=== PATIENT | male | born 1975 | race Caucasian/White ===

== ENCOUNTER 2020-12-09 16:19 | Inpatient (IN) | payer SELFPAY ==
[~2020-12-09 16:19] MED LIST: Iopamidol-370 76% 500 ML 1 ML ONE; Lorazepam 1 MG TAB PO PRN
[2020-12-09 17:43] LABS: PTT 33.7 sec (22.9-36.1); Prothrombin Time 13.4 sec (12.0-14.7)
[2020-12-09 18:09] LABS: ALT (SGPT) 57 U/L (8-55); AST (SGOT) 75 U/L (5-34); Albumin 2.7 g/dL (3.5-5.0); Alkaline Phosphatase 59 U/L (40-110); Anion Gap 15 mmol/L (10-20); BUN (Urea Nitrogen) 7 mg/dL (8.9-20.6); Bilirubin, Total 1.2 mg/dL (0.2-1.2); Calc. Creatinine Clearance 0 mL/min (70-130); Calcium 7.5 mg/dL (7.8-10.44); Carbon Dioxide 17 mmol/L (22-29); Chloride 100 mmol/L (98-107); Globulin 3.7 g/dL (2.4-3.5); Glucose 87 mg/dL (70-105); Magnesium 2.3 mg/dL (1.6-2.6); Potassium 3.5 mmol/L (3.5-5.1); Protein, Total 6.4 g/dL (6.0-8.3); Sodium 128 mmol/L (136-145)
[2020-12-09] MEDS ORDERED: Electrolyte Replacement Protocol 1 EACH FS SCH (18:15)
[2020-12-09 18:28] LABS: Phosphorus 3.6 mg/dL (2.3-4.7)
[2020-12-09 18:29] LABS: SARS-CoV-2 NAA Rapid Test Not Detected (NotDetected)
[2020-12-09] MEDS ORDERED: Ondansetron PF 4 MG/2 ML Vial IVP PRN (18:38)
[2020-12-09] MEDS ORDERED: Acetaminophen 325 MG TAB PO PRN (18:38)
[2020-12-09] MEDS ORDERED: HYDROcodone/Acetaminophen 5/325 mg Tablet PO PRN (18:38)
[2020-12-09] MEDS ORDERED: Morphine 4 MG/ML VIAL SLOW IVP PRN (18:44)
[2020-12-09] MEDS: Lorazepam 1 MG TAB PO SCH (19:44)
[2020-12-09 19:48] VITALS: BMI 29.0
[2020-12-09] MEDS ORDERED: Ondansetron ODT 4 MG TAB PO PRN (21:00)
[2020-12-09] MEDS ORDERED: Lorazepam 2 MG/ML VIAL IM PRN (21:00)
[2020-12-09] MEDS ORDERED: Piperacillin/Tazobactam 4.5 GM in Sodium Chloride 0.9% 100 ML IVPB SCH (22:00)
[2020-12-09] MEDS: Sodium Chloride 0.9% 1,000 ML IV SCH (22:19)
[2020-12-09] MEDS: Clindamycin/D5W 900 MG in Premix Bag 1 BAG IVPB SCH (22:20)
[2020-12-09] MEDS: Thiamine HCl 200 MG/2 ML VIAL SLOW IVP SCH (22:20)
[2020-12-09] MEDS: Nicotine 21 MG PATCH TD SCH (22:20)
[2020-12-09] MEDS: Piperacillin/Tazobactam 3.375 GM in Sodium Chloride 0.9% 100 ML IVPB SCH (22:20)
[2020-12-09] MEDS ORDERED: Fentanyl 100 MCG/2 ML VIAL ONE (23:22)
[2020-12-09] MEDS ORDERED: Ondansetron PF 4 MG/2 ML Vial ONE (23:37)
[2020-12-09] MEDS ORDERED: Succinylcholine 200 MG/10 ml SYRINGE FS ONE (23:37)
[2020-12-09] MEDS ORDERED: Rocuronium Bromide 10 MG/ML (10ML VIAL) ONE (23:37)
[2020-12-09] MEDS ORDERED: Glycopyrrolate 0.2 MG/ML 5 ML SYRINGE ONE (23:37)
[2020-12-09] MEDS ORDERED: Lidocaine 1% PF 5 ML VIAL ONE ×2 (23:37)
[2020-12-09] MEDS ORDERED: PROPOFOL 200 MG/20 ML VIAL ONE (23:37)
[2020-12-09] MEDS ORDERED: Dexamethasone 20 MG/5 ML VIAL ONE (23:37)
[2020-12-09] MEDS ORDERED: VANCOMYCIN 1.25 GM/250 ML BAG 1.25 GM in Premix Bag 1 BAG IVPB SCH (23:59)
[2020-12-10] MEDS ORDERED: Zolpidem Tartrate 5 MG TAB PO PRN (01:01)
[2020-12-10] MEDS ORDERED: Promethazine HCl 25 MG/ML VIAL IM PRN ×2 (01:01→01:03)
[2020-12-10] MEDS ORDERED: Ondansetron PF 4 MG/2 ML Vial IVP PRN (01:01)
[2020-12-10] MEDS ORDERED: diphenhydrAMINE 50 MG/ML VIAL IM PRN (01:01)
[2020-12-10] MEDS ORDERED: Naloxone HCl 0.4 mg/ml Vial IV PRN (01:01)
[2020-12-10] MEDS ORDERED: diphenhydrAMINE 25 MG CAP PO PRN (01:01)
[2020-12-10] MEDS ORDERED: diphenhydrAMINE 50 MG/ML VIAL IVP PRN (01:01)
[2020-12-10] MEDS ORDERED: fentaNYL Citrate/PF 2,000 MCG in Sodium Chloride 0.9% 60 ML IV PRN (01:01)
[2020-12-10] MEDS ORDERED: Promethazine HCl 25 MG/ML VIAL IVPB PRN (01:03)
[2020-12-10] MEDS ORDERED: Ondansetron HCl/PF 4 MG/2 ML Vial IVP PRN (01:03)
[2020-12-10] MEDS ORDERED: Fentanyl 100 MCG/2 ML VIAL ONE (01:11)
[2020-12-10] MEDS ORDERED: Communication Order-Pharmacy FS SCH (01:15)
[2020-12-10] MEDS: Lorazepam 1 MG TAB PO SCH (01:40)
[2020-12-10] MEDS: VANCOMYCIN 1.25 GM/250 ML BAG 1.25 GM in Premix Bag 1 BAG IVPB SCH ×3 (02:25→18:03)
[2020-12-10] MEDS: Piperacillin/Tazobactam 3.375 GM in Sodium Chloride 0.9% 100 ML IVPB SCH ×3 (03:27→20:11)
[2020-12-10] MEDS: Clindamycin/D5W 900 MG in Premix Bag 1 BAG IVPB SCH ×3 (03:27→22:35)
[2020-12-10 05:26] LABS: Anion Gap 14 mmol/L (10-20); BUN (Urea Nitrogen) 7 mg/dL (8.9-20.6); Calc. Creatinine Clearance 205 mL/min (70-130); Calcium 7.7 mg/dL (7.8-10.44); Carbon Dioxide 18 mmol/L (22-29); Chloride 103 mmol/L (98-107); Glucose 125 mg/dL (70-105); Magnesium 2.4 mg/dL (1.6-2.6); Potassium 4.6 mmol/L (3.5-5.1); Sodium 130 mmol/L (136-145)
[2020-12-10 05:38] LABS: Band 5 % (5-11); Hemoglobin 12.3 g/dL (14.0-18.0); Lymphocytes 11 % (21-51); MDiff Complete? YES; Mean Corpuscular HGB CONC 34.5 g/dL (32.0-36.0); Mean Corpuscular Hemoglobin 33.4 pg (27.0-31.0); Mean Corpuscular Volume 96.9 fL (78.0-98.0); Mean Platelet Volume 7.2 fL (7.4-10.4); Monocytes 6 % (0-10); Neutrophil 78 % (42-75); Platelet Count 250 thou/uL (130-400); Platelet Morphology Comment Appears Adequate; RBC Distribution Width 13.8 % (11.5-14.5); RBC Morphology Normal; Red Blood Cell (RBC) Count 3.69 mill/uL (4.70-6.10); White Blood Cell (WBC) Count 10.5 thou/uL (4.8-10.8)
[2020-12-10] MEDS ORDERED: Lorazepam 1 MG TAB PO SCH (06:00)
[2020-12-10] MEDS ORDERED: GUAIFENESIN SF SOLN 200 MG/10 ML UDCUP PO PRN (08:04)
[2020-12-10] MEDS ORDERED: Cepastat Lozenges 1 LOZ PO PRN (08:04)
[2020-12-10] MEDS ORDERED: hydrALAZINE 20 MG/ML VIAL SLOW IVP PRN (08:04)
[2020-12-10] MEDS ORDERED: Bisacodyl 5 MG TAB PO PRN (08:04)
[2020-12-10] MEDS ORDERED: Artificial Tear Sol 15 ML BOT EA EYE PRN (08:04)
[2020-12-10] MEDS ORDERED: Senokot S 8.6-50 MG TAB PO PRN (08:04)
[2020-12-10] MEDS ORDERED: Calcium Carbonate 500 MG ChewTAB PO PRN (08:04)
[2020-12-10] MEDS ORDERED: Loperamide HCl 2 MG CAP PO PRN (08:04)
[2020-12-10] MEDS ORDERED: Hydrocerin (Eucerin) Cream 120 gm Jar TOP PRN (08:04)
[2020-12-10] MEDS ORDERED: Sodium Chloride 0.65% Nasal 44 ML BOT EA NARE PRN (08:04)
[2020-12-10] MEDS: Multivit, Therapeutic 1 TAB PO SCH (09:12)
[2020-12-10] MEDS: Saccharomyces boulardii 250 MG CAP PO SCH (09:12)
[2020-12-10] MEDS: Folic Acid 1 MG TAB PO SCH (09:12)
[2020-12-10] MEDS: Sodium Chloride 0.9% 1,000 ML IV SCH ×2 (09:13→22:35)
[2020-12-10] MEDS: Nicotine 21 MG PATCH TD SCH (20:11)
[2020-12-10] MEDS: Thiamine HCl 200 MG/2 ML VIAL SLOW IVP SCH (20:51)
[2020-12-10] MEDS ORDERED: Lorazepam 1 MG TAB PO PRN (21:00)
[2020-12-11 01:18] LABS: Vancomycin, Trough 18.8 ug/mL
[2020-12-11] MEDS: VANCOMYCIN 1.25 GM/250 ML BAG 1.25 GM in Premix Bag 1 BAG IVPB SCH ×3 (01:25→18:08)
[2020-12-11] MEDS: Piperacillin/Tazobactam 3.375 GM in Sodium Chloride 0.9% 100 ML IVPB SCH ×3 (03:30→21:41)
[2020-12-11] MEDS ORDERED: Lorazepam 0.5 MG TAB PO SCH (06:00)
[2020-12-11] MEDS: Clindamycin/D5W 900 MG in Premix Bag 1 BAG IVPB SCH ×3 (06:13→21:41)
[2020-12-11] MEDS: Saccharomyces boulardii 250 MG CAP PO SCH (08:40)
[2020-12-11] MEDS: Folic Acid 1 MG TAB PO SCH (08:40)
[2020-12-11] MEDS: Multivit, Therapeutic 1 TAB PO SCH (08:40)
[2020-12-11] MEDS ORDERED: Fentanyl 100 MCG/2 ML VIAL ONE ×2 (09:00→11:19)
[2020-12-11] MEDS ORDERED: Lidocaine 1% w/Epinephrine 1:100K 20 ML VIAL ONE (09:23)
[2020-12-11] MEDS ORDERED: Bupivacaine 0.25% HCL 30 ML VIAL ONE (09:23)
[2020-12-11] MEDS ORDERED: Polyethylene Glycol 3350 17 GM Packet PO SCH (09:45)
[2020-12-11] MEDS ORDERED: PROPOFOL 200 MG/20 ML VIAL ONE (10:29)
[2020-12-11] MEDS ORDERED: Ondansetron PF 4 MG/2 ML Vial ONE (10:29)
[2020-12-11] MEDS ORDERED: Lidocaine 1% PF 5 ML VIAL ONE (10:29)
[2020-12-11] MEDS ORDERED: Ketorolac Tromethamine 30 MG/ML VIAL ONE (10:29)
[2020-12-11] MEDS ORDERED: Ondansetron HCl/PF 4 MG/2 ML Vial IVP PRN (11:09)
[2020-12-11] MEDS ORDERED: Promethazine HCl 25 MG/ML VIAL IM PRN (11:09)
[2020-12-11] MEDS ORDERED: Promethazine HCl 25 MG/ML VIAL IVPB PRN (11:09)
[2020-12-11] MEDS: Sodium Chloride 0.9% 1,000 ML IV SCH (18:08)
[2020-12-11] MEDS ORDERED: Lorazepam 1 MG TAB PO PRN (21:00)
[2020-12-11] MEDS: Nicotine 21 MG PATCH TD SCH (21:40)
[2020-12-11] MEDS: Thiamine HCl 200 MG/2 ML VIAL SLOW IVP SCH (21:43)
[2020-12-12 02:03] LABS: Vancomycin, Trough 17.6 ug/mL
[2020-12-12] MEDS: VANCOMYCIN 1.25 GM/250 ML BAG 1.25 GM in Premix Bag 1 BAG IVPB SCH ×2 (02:27→09:26)
[2020-12-12 04:22] LABS: #Eosinphils 0.2 thou/uL (0.0-0.7); #Lymphocytes 2.1 thou/uL (1.20-3.40); #Monocytes 0.7 thou/uL (0.11-0.59); #Neutrophils 5.2 thou/uL (1.40-6.50); %Basophils 0.2 % (0.0-1.0); %Eosinophils 2.5 % (0.0-10.0); %Lymphocytes 25.2 % (21.0-51.0); %Neutrophils 64.1 % (42.0-75.0); Hemoglobin 11.8 g/dL (14.0-18.0); Mean Corpuscular HGB CONC 33.4 g/dL (32.0-36.0); Mean Corpuscular Hemoglobin 32.9 pg (27.0-31.0); Mean Corpuscular Volume 98.3 fL (78.0-98.0); Mean Platelet Volume 5.9 fL (7.4-10.4); Platelet Count 396 thou/uL (130-400); RBC Distribution Width 14.1 % (11.5-14.5); Red Blood Cell (RBC) Count 3.57 mill/uL (4.70-6.10); White Blood Cell (WBC) Count 8.1 thou/uL (4.8-10.8)
[2020-12-12 04:40] LABS: Anion Gap 14 mmol/L (10-20); BUN (Urea Nitrogen) 5 mg/dL (8.9-20.6); Calc. Creatinine Clearance 183 mL/min (70-130); Carbon Dioxide 21 mmol/L (22-29); Chloride 104 mmol/L (98-107); Glucose 92 mg/dL (70-105); Potassium 3.6 mmol/L (3.5-5.1); Sodium 135 mmol/L (136-145)
[2020-12-12] MEDS: Piperacillin/Tazobactam 3.375 GM in Sodium Chloride 0.9% 100 ML IVPB SCH ×3 (05:04→20:09)
[2020-12-12] MEDS: Clindamycin/D5W 900 MG in Premix Bag 1 BAG IVPB SCH (05:04)
[2020-12-12] MEDS: Sodium Chloride 0.9% 1,000 ML IV SCH (05:08)
[2020-12-12] MEDS ORDERED: Lorazepam 0.5 MG TAB PO PRN (06:00)
[2020-12-12] MEDS: Folic Acid 1 MG TAB PO SCH (08:48)
[2020-12-12] MEDS: Multivit, Therapeutic 1 TAB PO SCH (08:48)
[2020-12-12] MEDS: Thiamine 100 MG TAB PO SCH (08:48)
[2020-12-12] MEDS: Enoxaparin Sodium 40 MG/0.4 ML SYRINGE SC SCH (08:48)
[2020-12-12] MEDS: Saccharomyces boulardii 250 MG CAP PO SCH (08:48)
[2020-12-12] MEDS: Polyethylene Glycol 3350 17 GM Packet PO SCH (08:57)
[2020-12-12] MEDS ORDERED: HYDROcodone/Acetaminophen 5/325 mg Tablet PO PRN (09:29)
[2020-12-12] MEDS ORDERED: Morphine 4 MG/ML VIAL SLOW IVP PRN (09:29)
[2020-12-12] MEDS: Nicotine 21 MG PATCH TD SCH (20:09)
[2020-12-13 04:12] LABS: #Eosinphils 0.2 thou/uL (0.0-0.7); #Lymphocytes 2.8 thou/uL (1.20-3.40); #Monocytes 0.8 thou/uL (0.11-0.59); #Neutrophils 6.8 thou/uL (1.40-6.50); %Basophils 0.1 % (0.0-1.0); %Eosinophils 2.2 % (0.0-10.0); %Lymphocytes 26.4 % (21.0-51.0); %Monocytes 7.4 % (0.0-10.0); %Neutrophils 63.9 % (42.0-75.0); Mean Corpuscular HGB CONC 34.6 g/dL (32.0-36.0); Mean Corpuscular Hemoglobin 33.5 pg (27.0-31.0); Mean Corpuscular Volume 96.9 fL (78.0-98.0); Mean Platelet Volume 5.9 fL (7.4-10.4); Platelet Count 444 thou/uL (130-400); Red Blood Cell (RBC) Count 3.59 mill/uL (4.70-6.10); White Blood Cell (WBC) Count 10.7 thou/uL (4.8-10.8)
[2020-12-13 04:42] LABS: Anion Gap 13 mmol/L (10-20); BUN (Urea Nitrogen) 4 mg/dL (8.9-20.6); Calc. Creatinine Clearance 189 mL/min (70-130); Calcium 8.2 mg/dL (7.8-10.44); Carbon Dioxide 20 mmol/L (22-29); Chloride 106 mmol/L (98-107); Glucose 93 mg/dL (70-105); Potassium 3.7 mmol/L (3.5-5.1); Sodium 135 mmol/L (136-145)
[2020-12-13] MEDS: Piperacillin/Tazobactam 3.375 GM in Sodium Chloride 0.9% 100 ML IVPB SCH ×3 (04:55→20:14)
[2020-12-13] MEDS: Polyethylene Glycol 3350 17 GM Packet PO SCH (08:27)
[2020-12-13] MEDS: Saccharomyces boulardii 250 MG CAP PO SCH (08:28)
[2020-12-13] MEDS: Multivit, Therapeutic 1 TAB PO SCH (08:29)
[2020-12-13] MEDS: Enoxaparin Sodium 40 MG/0.4 ML SYRINGE SC SCH (08:29)
[2020-12-13] MEDS: Folic Acid 1 MG TAB PO SCH (08:29)
[2020-12-13] MEDS: Thiamine 100 MG TAB PO SCH (08:29)
[2020-12-13] MEDS: Nicotine 21 MG PATCH TD SCH (20:14)
[2020-12-14] MEDS: Piperacillin/Tazobactam 3.375 GM in Sodium Chloride 0.9% 100 ML IVPB SCH ×3 (04:43→20:26)
[2020-12-14] MEDS: Enoxaparin Sodium 40 MG/0.4 ML SYRINGE SC SCH (08:56)
[2020-12-14] MEDS: Saccharomyces boulardii 250 MG CAP PO SCH (08:56)
[2020-12-14] MEDS: Thiamine 100 MG TAB PO SCH (08:56)
[2020-12-14] MEDS: Multivit, Therapeutic 1 TAB PO SCH (08:56)
[2020-12-14] MEDS: Folic Acid 1 MG TAB PO SCH (08:56)
[2020-12-14] MEDS: Polyethylene Glycol 3350 17 GM Packet PO SCH (10:47)
[2020-12-14] MEDS: Nicotine 21 MG PATCH TD SCH (20:26)
[2020-12-15] MEDS: Piperacillin/Tazobactam 3.375 GM in Sodium Chloride 0.9% 100 ML IVPB SCH (04:52)
[2020-12-15 07:58] VITALS: BP 124/79; TEMP 97.4
[2020-12-15] MEDS: Folic Acid 1 MG TAB PO SCH (08:12)
[2020-12-15] MEDS: Polyethylene Glycol 3350 17 GM Packet PO SCH (08:12)
[2020-12-15] MEDS: Multivit, Therapeutic 1 TAB PO SCH (08:12)
[2020-12-15] MEDS: Thiamine 100 MG TAB PO SCH (08:12)
[2020-12-15] MEDS: Enoxaparin Sodium 40 MG/0.4 ML SYRINGE SC SCH (08:12)
[2020-12-15] MEDS: Saccharomyces boulardii 250 MG CAP PO SCH (08:12)
== END 2020-12-15 11:55 | disposition home or self-care (01) | DRG 854 ==
LOC: ERS 16:19 → 2NO 17:47 → ONC 12-10 13:11
PROVIDERS: ADMIT Internal Medicine; ATTEND Internal Medicine
PROC: 0JB90ZZ Excision of Buttock Subcutaneous Tissue and Fascia, Open Approach (ICD-10-PCS; principal; 2020-12-10)
PROC: 0JB90ZZ Excision of Buttock Subcutaneous Tissue and Fascia, Open Approach (ICD-10-PCS; 2020-12-11)
DX: A41.51 Sepsis due to Escherichia coli [E. coli] (principal); K61.1 Rectal abscess; K57.20 Diverticulitis of large intestine with perforation and abscess without bleeding; E87.1 Hypo-osmolality and hyponatremia; I96 Gangrene, not elsewhere classified; Z20.822 Contact with and (suspected) exposure to COVID-19; F17.210 Nicotine dependence, cigarettes, uncomplicated; F12.90 Cannabis use, unspecified, uncomplicated; E87.6 Hypokalemia; F10.20 Alcohol dependence, uncomplicated
CPT/HCPCS: 36415; 74177; 80048; 80202; 83605; 83735; 84100; 85025; 85610; 85730; 87070; 87077; 87186; 87205; J1100; J1650; J1885; J2405; J2543; J2704; J3010; J3370; J3411; J3490; J7050; Q9967; S0020; U0002